=== PATIENT | male | born 1960 | race Caucasian/White ===

== ENCOUNTER → 2022-10-13 | Outpatient (CLI) | payer BC | END | disposition home or self-care (01) | LOC: RESCLI 10:43 | PROVIDERS: ATTEND Student in an Organized Health Care Education/Training Program | DX: R07.9 Chest pain, unspecified (principal); E78.5 Hyperlipidemia, unspecified; I10 Essential (primary) hypertension; E11.65 Type 2 diabetes mellitus with hyperglycemia; C20 Malignant neoplasm of rectum; E11.21 Type 2 diabetes mellitus with diabetic nephropathy; A41.9 Sepsis, unspecified organism; Z43.3 Encounter for attention to colostomy; Z79.82 Long term (current) use of aspirin; Z79.899 Other long term (current) drug therapy; Z98.890 Other specified postprocedural states ==

== ENCOUNTER → 2023-10-16 | Outpatient (CLI) | payer BC | END | disposition home or self-care (01) | LOC: RESCLI 01:47 | PROVIDERS: ATTEND Internal Medicine | DX: R07.9 Chest pain, unspecified (principal); I10 Essential (primary) hypertension; E78.5 Hyperlipidemia, unspecified; E11.21 Type 2 diabetes mellitus with diabetic nephropathy; E11.65 Type 2 diabetes mellitus with hyperglycemia; C20 Malignant neoplasm of rectum; Z43.3 Encounter for attention to colostomy; A41.9 Sepsis, unspecified organism; Z98.890 Other specified postprocedural states; Z79.899 Other long term (current) drug therapy; Z87.891 Personal history of nicotine dependence ==